=== PATIENT | male | born 1950 | race Caucasian/White ===

== ENCOUNTER 2016-07-16 12:32 | Outpatient (CLI) | payer OTHER | END 2016-07-16 12:33 | disposition home or self-care (01) | LOC: DI 12:32 | PROVIDERS: ATTEND Internal Medicine | DX: I48.91 Unspecified atrial fibrillation (principal); I51.7 Cardiomegaly | CPT/HCPCS: 93306 ==

== ENCOUNTER 2017-05-10 14:53 | Outpatient (CLI) | payer OTHER | END 2017-05-10 14:54 | disposition critical access hospital (66) | LOC: EMS 14:53 | PROVIDERS: ATTEND Surgery | DX: R53.1 Weakness (principal) | CPT/HCPCS: A0425; A0427 ==

== ENCOUNTER 2017-05-10 15:09 | Emergency (ER) | payer OTHER ==
[2017-05-10] MEDS ORDERED: SODIUM CHLORIDE 0.9% 1,000 ML IV ONE (15:33)
--- NOTE | 2017-05-10 15:41 | ED Physician Documentation ---
PD HPI ABD PAIN - Stated complaint Stated Complaint: MALE - Chief complaint Chief Complaint: Abd Pain - History obtained from History obtained from: Patient, Family () - History of Present Illness Timing - onset: Other (66-year-old gentleman who really does not like going to doctor. Never had a colonoscopy. Per the from whom most of the history is taken because he is somewhat encephalopathic, he has had an unintended weight loss of about 120 pounds over the last year and started wearing diapers because of rectal bleeding which became quite heavy over the last couple of days. Per the paramedics the house is covered in blood.) Review of Systems Ten Systems: 10 systems reviewed and negative Constitutional: reports: Fatigue, Weight Loss PD PAST MEDICAL HISTORY - Past Medical History Past Medical History: Yes Cardiovascular: Hypertension - Past Surgical History Past Surgical History: No - Allergies Allergies/Adverse Reactions: Allergies Allergy/AdvReac Type Severity Reaction Status Date / Time No Known Drug Allergies Allergy Verified 04/20/13 12:10 - Social History Does the pt smoke?: No Smoking Status: Never smoker Does the pt drink ETOH?: No Does the pt have substance abuse?: No - Family History Family history: reports: Non contributory PD ED PE NORMAL - Vitals Vital signs reviewed: Yes - General General: Other (Slow to answer questions but alert and oriented. He is very pale with poor perfusion.) - HEENT HEENT: PERRL, EOMI - Neck Neck: Supple, no meningeal sign, No bony TTP - Cardiac Cardiac: Other (Tachycardic and quite irregular without murmur) - Respiratory Respiratory: No respiratory distress, Clear bilaterally - Abdomen Abdomen: Other (Mild diffuse tenderness without surgical signs) - Rectal Rectal: Other (The entirety of the perirectal area is basically a abscess with purulent drainage and a lot of tenderness and profuse blood from the anus.) - Derm Derm: Other (Cool and poor perfused) - Extremities Extremities: Other (Asymmetric pedal edema, right greater than left) - Neuro Neuro: seo strategist 2-12 intact Eye Opening: Spontaneous Motor: Obeys Commands Verbal: Confused GCS Score: 14 Results - Vitals Vitals: Vital Signs - 24 hr 05/10/17 05/10/17 05/10/17 15:10 15:30 16:00 Temperature 36.5 C Heart Rate 157 H 143 H 145 H Respiratory 20 16 23 Rate Blood Pressure 113/92 H 113/92 H 115/79 O2 Saturation 100 99 100 05/10/17 05/10/17 05/10/17 16:15 16:24 17:33 Temperature Heart Rate 133 H 119 H 136 H Respiratory 16 18 10 L Rate Blood Pressure 119/82 H 119/82 H 154/92 H O2 Saturation 100 99 100 05/10/17 05/10/17 05/10/17 18:25 18:40 19:15 Temperature 36.5 C 36.3 C L Heart Rate 111 H 102 H 103 H Respiratory 18 20 20 Rate Blood Pressure 135/84 H 132/88 H 131/90 H O2 Saturation 100 Oxygen O2 Source Nasal cannula - EKG (time done) 1542 Rate: Rate (enter#) (150) Rhythm: Atrial fibrillation [place]: Normal Ischemia: Other (Lateral ST depression) Computer interpretation: Agree with computer - Labs Labs: Laboratory Tests 05/10/17 05/10/17 05/10/17 15:54 15:54 15:54 WBC 27.8 H RBC 4.87 Hgb 9.2 L Hct 31.4 L MCV 64.6 L MCH 18.9 L MCHC 29.2 L RDW 21.3 H Plt Count 312 MPV 8.6 Neut # 26.6 H Lymph # 0.5 L [place] # 0.6 Eos # 0.0 Baso # 0.1 Absolute Nucleated RBC 0.02 Total Counted PATIENT SERVICE TECHNICIAN PST Band Neuts % (Manual) PATIENT SERVICE TECHNICIAN PST Abnorm Lymph % (Manual) PATIENT SERVICE TECHNICIAN PST Nucleated RBC % 0.1 Neutrophils # (Manual) PATIENT SERVICE TECHNICIAN PST Lymphocytes # (Manual) PATIENT SERVICE TECHNICIAN PST Monocytes # (Manual) PATIENT SERVICE TECHNICIAN PST Eosinophils # (Manual) PATIENT SERVICE TECHNICIAN PST Basophils # (Manual) PATIENT SERVICE TECHNICIAN PST Manual Slide Review Indicated Platelet Estimate NORMAL (130-450,000) Platelet Morphology NORMAL APPEARANCE RBC Morph Micro Appear 4+ MICROCYTOSIS PT 17.0 H INR 1.5 H APTT 25.3 Sodium 137 Potassium 2.7 L Chloride 96 L Carbon Dioxide 21 Anion Gap 20.0 H BUN 17 Creatinine 1.1 Estimated GFR (MDRD) 67 L Glucose 156 H Lactic Acid Calcium 8.4 L Magnesium 1.4 L Total Bilirubin 1.7 H AST 29 ALT 13 Alkaline Phosphatase 84 Total Creatine Kinase 66 CK-MB (CK-2) Troponin I Total Protein 5.5 L Albumin 2.5 L Globulin 3.0 Albumin/Globulin Ratio 0.8 L Lipase 24 Ethyl Alcohol < 5.0 Blood Type Blood Type Recheck Antibody Screen Crossmatch IS Only 05/10/17 05/10/17 05/10/17 15:54 15:54 15:54 WBC RBC Hgb Hct MCV MCH MCHC RDW Plt Count MPV Neut # Lymph # [place] # Eos # Baso # Absolute Nucleated RBC Total Counted Band Neuts % (Manual) Abnorm Lymph % (Manual) Nucleated RBC % Neutrophils # (Manual) Lymphocytes # (Manual) Monocytes # (Manual) Eosinophils # (Manual) Basophils # (Manual) Manual Slide Review Platelet Estimate Platelet Morphology RBC Morph Micro Appear PT INR APTT Sodium Potassium Chloride Carbon Dioxide Anion Gap BUN Creatinine Estimated GFR (MDRD) Glucose Lactic Acid 6.1 H* Calcium Magnesium Total Bilirubin AST ALT Alkaline Phosphatase Total Creatine Kinase CK-MB (CK-2) 5.9 Troponin I 0.15 Total Protein Albumin Globulin Albumin/Globulin Ratio Lipase Ethyl Alcohol Blood Type O POSITIVE Blood Type Recheck Antibody Screen NEGATIVE Crossmatch IS Only See Detail 05/10/17 16:50 WBC RBC Hgb Hct MCV MCH MCHC RDW Plt Count MPV Neut # Lymph # [place] # Eos # Baso # Absolute Nucleated RBC Total Counted Band Neuts % (Manual) Abnorm Lymph % (Manual) Nucleated RBC % Neutrophils # (Manual) Lymphocytes # (Manual) Monocytes # (Manual) Eosinophils # (Manual) Basophils # (Manual) Manual Slide Review Platelet Estimate Platelet Morphology RBC Morph Micro Appear PT INR APTT Sodium Potassium Chloride Carbon Dioxide Anion Gap BUN Creatinine Estimated GFR (MDRD) Glucose Lactic Acid Calcium Magnesium Total Bilirubin AST ALT Alkaline Phosphatase Total Creatine Kinase CK-MB (CK-2) Troponin I Total Protein Albumin Globulin Albumin/Globulin Ratio Lipase Ethyl Alcohol Blood Type Blood Type Recheck O POSITIVE Antibody Screen Crossmatch IS Only - Rads (name of study) CT KUB Radiology: EMP read contemporaneously (See complete radiology read, briefly she he has a very large soft tissue mass of the rectum likely malignant with substantial gas in the upper scrotum, base of the penis, and inguinal canals bilaterally, he has inguinal adenopathy and a T8 lesion concerning for metastasis with bilateral pleural effusions and body wall edema as well as renal cysts.) Procedures - General procedure General procedure: He was difficult for IV access, the nurse and distribution systems superintendent had tried and failed prior to my attempt, I tried in the left AC using ultrasound guidance and failed and I placed a 16-gauge IV in the left external jugular which flushed easily but did not draw blood. He needed more IV access and I personally placed a 20-gauge IV in the right external jugular as well after ChloraPrep to draw the blood cultures it flushed easily. PD MEDICAL DECISION MAKING - ED course ED course: 66-year-old gentleman presents with profuse GI bleeding in the setting of recent weight loss that is unintended and what looks like advanced anorectal cancer with abscess formation. Dr. Baires was consulted immediately and he examined the patient at bedside and felt he probably needed to be transferred to a tertiary facility with the ability to do urgent radiation on this. He was administered Zosyn and Flagyl after blood cultures. He was fluid resuscitated and given divided doses of diltiazem for atrial fibrillation with rapid ventricular response. His rapid ventricular response improved. The concern for necrotizing fasciitis was considered with the surgeon, who felt he did not have necrotizing fasciitis , simply an abscess with air in it which was spreading air. That said he still felt he needed to go to a tertiary facility and the [facility] and [facility] are considering. I spoke with Dr. Armando, the surgeon at [facility] who felt that after hearing the story this is probably not consistent with necrotizing fasciitis, he will follow along with defers to the oncology ICU at the [facility] for admission and they will call me back. Accepted by Dr Galdamez, ICU at 1945 - Critical Care Time(min): 45 Time Includes: Direct patient care, Review records, Reassess patient, Document care, Coordinate care, Medical consult, Family consult for tx dec Data interpretation: Labs, Pulse ox Procedures excluded from critical care time: EKG Departure - Departure Disposition: 02 Transfer Acute Care Hosp Clinical Impression: Rectal bleeding, Atrial fibrillation with RVR Condition: Critical
[2017-05-10] MEDS ORDERED: diltiaZEM INJ 5 MG/ML VIAL ONE (16:01)
[2017-05-10 16:05] LABS: BASOPHILS # (AUTO) 0.1 10^3/uL (0.0-0.1); BASOPHILS % (AUTO) 0.2 %; HGB - HEMOGLOBIN 9.2 g/dL (14.0-18.0); LYMPHOCYTES # (AUTO) 0.5 10^3/uL (1.5-3.5); LYMPHOCYTES % (AUTO) 1.7 %; MEAN CORPUSCULAR HEMOGLOBIN 18.9 pg (27.0-31.0); MEAN CORPUSCULAR HGB CONC 29.2 g/dL (32.0-36.0); MEAN CORPUSCULAR VOLUME 64.6 fL (80.0-94.0); MEAN PLATELET VOLUME 8.6 fL (7.4-11.4); MONOCYTES # (AUTO) 0.6 10^3/uL (0.0-1.0); MONOCYTES % (AUTO) 2.1 %; NEUTROPHILS # (AUTO) 26.6 10^3/uL (1.5-6.6); PLT - PLATELET COUNT 312 10^3/uL (130-450); RED BLOOD COUNT 4.87 10^6/uL (4.70-6.10); RED CELL DISTRIBUTION WIDTH 21.3 % (12.0-15.0); WHITE BLOOD COUNT 27.8 x10^3/uL (4.8-10.8)
[2017-05-10 16:07] LABS: INR 1.5 (0.8-1.2)
[2017-05-10] MEDS ORDERED: diltiaZEM INJ 5 MG/ML VIAL IVP STA ×3 (16:07→17:34)
[2017-05-10] MEDS ORDERED: metroNIDAZOLE 500 MG/100 ML 500 MG/100 ML BAG IV ONE (16:08)
[2017-05-10] MEDS ORDERED: PIPERACILLIN/TAZOBACTAM 4.5 GM in SODIUM CHLORIDE 0.9% MINIBAG 100 ML IV STA (16:08)
[2017-05-10 16:14] LABS: ALBUMIN 2.5 g/dL (3.2-5.5); ALBUMIN/GLOBULIN RATIO 0.8 (1.0-2.2); ALKALINE PHOSPHATASE 84 IU/L (42-121); ALT ALANINE AMINOTRANSFERASE 13 IU/L (10-60); AST ASPARTATE AMINOTRANSFERASE 29 IU/L (10-42); BILIRUBIN,TOTAL 1.7 mg/dL (0.2-1.0); BUN - BLOOD UREA NITROGEN 17 mg/dL (6-20); CALCIUM 8.4 mg/dL (8.5-10.3); CARBON DIOXIDE - CO2 21 mmol/L (21-32); CHLORIDE 96 mmol/L (101-111); CK- CREATINE KINASE 66 IU/L (22-269); CREATININE 1.1 mg/dL (0.6-1.2); GFR - MDRD 67 (>89); GLUCOSE 156 mg/dL (70-100); LIPASE 24 U/L (22-51); MAGNESIUM 1.4 mg/dL (1.7-2.8); SODIUM 137 mmol/L (135-145); TOTAL PROTEIN 5.5 g/dL (6.7-8.2)
--- NOTE | 2017-05-10 16:15 | CONSULTATION NOTE ---
Referring Provider Name of Referring Provider:: Faustino Garcia/John Robles Consult Date: 05/10/17 Chief Complaint - Chief Complaint Chief Complaint: Profound hematochezia with hypotension and tachycardia History of Present Illness - Admitted From Admitted From:: Not. - History Obtained From Records Reviewed: Yes. History obtained from: /paramedics/Dr. Garcia Exam Limitations: Patient is tachycardic and hypotensive with questionable ability to answer. - History of Present Illness HPI Comment/Other: The patient is a 66-year-old male evaluated urgently in room 1 at [facility]'s emergency department at the request of Dr. Faustino Garza. The patient states that he has had a long history of hemorrhoids but when asked him who diagnosed the hemorrhoids the patient stated that he did. He has never had a colon evaluation. Specifically, he has never had a colonoscopy or barium enema and from the records that I have he has not even had a digital rectal examination. The patient states that he does not like going to physicians and review of his chart here at the hospital confirms this to be the case. In the past 4 years he was seen once in the emergency department and we have 2 echocardiograms as well as a fluoroscopic study looking at his diaphragm. No additional information is available. The patient states that he has had blood per rectum for years but that in the past several days the bleeding has gotten significantly worse. The paramedics stated that there was blood "all over the house." The patient describes exquisite tenderness of his "rear-end." He is not on any blood thinners. He does not drink alcohol. History - Past Medical History Cardiovascular: reports: Hypertension GI: reports: Hemorrhoids Meds/Allgy - Allergies Allergies/Adverse Reactions: Allergies Allergy/AdvReac Type Severity Reaction Status Date / Time No Known Drug Allergies Allergy Verified 04/20/13 12:10 Review of Systems - Other Findings Other Findings: I did not ask an extensive review of systems as it is not pertinent at this point in time. Exam - Vital Signs Reviewed Vital Signs: Yes Vital Signs: Vital Signs x48h Temp Pulse Resp BP Pulse Ox 05/10/17 15:10 36.5 C 157 H 20 113/92 H 100 - Physical Exam General Appearance: positive: Moderate distress Eyes Bilateral: positive: No lid inflammation, Conjunctivae nml, No scleral icterus Neck: positive: Trachea midline Respiratory: positive: Breath sounds nml, Other (Tachypneic.) Cardiovascular: positive: Tachycardia Abdomen: positive: Non-tender, Nml bowel sounds Rectal: positive: Other (A rectal examination was not performed as it could not be performed. The patient has a large near circumferential mass that is rock hard at the anus. There is some dark discoloration in the lateral cheek. There is blood mixed with stool leaking out of the anus.) Skin: positive: Pallor Extremities: positive: Pedal edema Neurologic/Psychiatric: positive: Other (Orientation improving he knows that he is in the hospital and was able to answer some of my questions. Apparently he got the year correct when he is speaking with Dr. Garza.) Conclusion/Plan - Diagnosis Diagnosis: Anorectal carcinoma (advanced) as the cause of his hemorrhage. - Plan Plan: I do not have pathologic confirmation that this is an anal rectal carcinoma but the clinical presentation is certainly that of a cancer. Whether not this is anal or rectal remains to be seen during pathologic evaluation and a biopsy should be performed. Currently, he needs to be stabilized with blood products to maintain his heart rate at or just slightly below 100. Following this I strongly recommend that he be transferred to a clinical setting where radiation therapy can be applied to this mass to shrink it and decrease the bleeding. It is likely that he will require a diverting colostomy but a diverting colostomy alone will not stop his bleeding nor his ano-rectal pain. At the time that he has his diverting colostomy they can perform the biopsies. The treatment for this disease process is radiation therapy. It is likely only going to be palliative but this is a treatment modality that we do not have at our hospital. Consideration can be given to interventional radiology to thrombose the responsible blood vessel(s) but this will do nothing to decrrease the size of the mass and consequently decrease his pain. Review of his labs also indicates that he has an elevated white blood cell count and a coagulopathy which greatly raises the likelihood that the malignangcy has perforated the distal rectum and in addition is likely metastatic to the liver. Lastly, we have limited blood bank resources at our hospital. We have limited availability to pack red blood cells and fresh frozen plasma. It is generally much faster for us to transfer patient to platelets then to have platelets brought to this hospital. For all the reasons documented above and to summarize I strongly recommend an urgent referral to a tertiary care center that has the ability to: -radiate his anorectum or interventional radiology to thrombose the responsible blood vessel for the bleeding (we cannot do this) -obtain anorectal biopsies to confirm the diagnosis -perform a diverting colostomy -have more ready access to blood products as needed - Lab Results Fish Bones: 05/10/17 15:54 05/10/17 15:54
[2017-05-10 16:18] LABS: TROPONIN I 0.15 ng/mL (<0.49)
[2017-05-10 16:20] LABS: CREATINE KINASE MB 5.9 ng/mL (0.6-6.3)
[2017-05-10] MEDS ORDERED: LACTATED RINGERS 1,000 ML IV STA ×2 (16:22→17:04)
[2017-05-10] MEDS ORDERED: POTASSIUM CHLOR 10 MEQ/100 ML 10 MEQ/100 ML BAG IV ONE (16:22)
[2017-05-10] MEDS ORDERED: MAGNESIUM SULFATE 2 GRAM 2 GM/50 ML BAG IV ONE (16:22)
[2017-05-10 16:25] LABS: PLATELET ESTIMATE, MANUAL NORMAL (130-450,000) (NORMAL); PLATELET MORPHOLOGY NORMAL APPEARANCE (NORMAL)
[2017-05-10] MEDS ORDERED: CLINDAMYCIN 900 MG/50 ML 50 ML IV ONE (17:05)
--- NOTE | 2017-05-10 17:21 | MISCELLANEOUS PROVIDER NOTE ---
Miscellaneous Provider Note - - Note: The CT scan of the abdomen and pelvis is now completed which provides additional information. There is air in the scrotum and around the penis but not in the abdomen (no free air). This pattern of air does not appear to be necrotizing fasciitis but rather appears to be a perforated markedly advanced rectal cancer. This is the source of his elevated white blood cell count and makes the need for a diverting colostomy unquestionable. As I do not believe that the patient has necrotizing fasciitis at this time he does not need an emergent operation. I still believe it would be in the patient's best interest to be transferred to a hospital where all of my previous recommendations can be done on an expedited manner. Please note that the radiologist's reading on the CT scan is not back yet but I cannot see how this would make any clinical difference.
--- NOTE | 2017-05-10 17:39 | CT Report ---
EXAM: CT ABDOMEN AND PELVIS EXAM DATE: 05/10/2017 04:41 PM. CLINICAL HISTORY: Rectal bleed, rectal mass. COMPARISONS: None. TECHNIQUE: Routine helical CT imaging was performed through the abdomen and pelvis. IV contrast: None . Enteric contrast: No. Reconstructions: Coronal and sagittal. In accordance with CT protocol optimization, one or more of the following dose reduction techniques w ere utilized for this exam: automated exposure control, adjustment of mA and/or KV based on patient s ize, or use of iterative reconstructive technique. FINDINGS: Lung Bases: Partial demonstration of a small right and moderate left pleural effusion. Adjacent minim al left lower lobe probable atelectasis. Coronary artery calcifications demonstrated. Liver/spleen/pancreas/adrenal glands: Numerous splenic and minimal hepatic calcified nodules are comp atible with old granulomatous disease. No other gross abnormalities, bilateral mid noncontrast imagin g. Kidneys: No stones, hydronephrosis or hydroureter. Small lateral right mid kidney hypodensity is comp atible with a cyst but not adequately characterize. 1.3 cm hyperdense exophytic left upper pole nodul e suggests a complex cyst but it is not specific. Ultrasound could be performed for further evaluatio n. Peritoneal Cavity/Bowel: No definite intra-abdominal or intrapelvic lymphadenopathy. No aditi free fl uid. There is bilateral inguinal lymphadenopathy with maximum short axis diameter from 1.8 cm on the left and 1.7 cm on the right. The appendix is well visualized and normal. There are some distended sm all bowel loops and there is a large amount of stool within the colon but there is no aditi obstructi on. Large, lobulated mass centered in the region of the rectum extending through the level of the annulus and also extending into the medial gluteal region. Within its mid and upper portion there central ga s which likely represents the rectal lumen. This most consistent with a large rectal malignancy with maximum AP, transverse and craniocaudal dimensions of approximately 11.4 x 8.6 x 15.0 cm. There is as sociated bony destruction of much of the sacrum at the S4 level and below. Within the pelvis centered anterior to the L5 and S1 level is a lobulated mass with some mild internal linear enhancement or mi ld calcification which abuts and may be contiguous with the larger rectal region mass. It measures 7. 1 x 7.7 x 7.0 cm. There is a moderate amount of focal and tracking gas within the subcutaneous tissues in the region of the proximal penis and base of the penis, right substantially greater than left,, including substant ially on the inferior most image indicating that it is not fully included. This tracks superiorly int o the inguinal canal on the right and mildly on the left. It also extends posteriorly on the right in the perineal region and deep to the right gluteal crease, near the lower margin of the rectal relate d mass, including on the lowest image, presumably not including its full extent. In the absence of re cent surgical procedure, this is compatible with superimposed infection and could represent necrotizi ng fasciitis. There are at least a couple of foci of extraluminal gas within the posterior right pelv is in the anterior margin of the lower right sacrum. No other free air demonstrated within the abdome n or pelvis. Pelvic Organs: Limited bladder distention with a pattern suspicious for diffuse wall thickening, like ly accentuated by limited distention. The prostate cannot be differentiated from the large lower pelv ic mass. Vasculature: Moderate calcifications, without aneurysm. Bones: Lower sacral and coccygeal bony destruction from the pelvic mass. Focal lucency within T8 vert ebral body may be an incidental finding but a lytic, metastatic lesion is not excluded. Other: Evidence of diffuse body wall edema. IMPRESSION: 1. Very large soft tissue mass within the lower pelvis measuring up to 15 cm extending throughout the rectal region, and beyond, as discussed above, likely representing rectal malignancy. There is assoc iated bony destruction of the lower sacrum. There is an additional lobulated mass within the posterio r mid to upper pelvis measuring up to 7.7 cm which may be contiguous with the other mass. 2. Substantial gas within the subcutaneous tissues at level of the upper scrotum, base of penis and t racking into the inguinal canal regions bilaterally, right greater than left, and posteriorly into th e right perineal region compatible with infection and suspicious for necrotizing fasciitis. The full inferior extent of the soft tissue gas is not included on this exam. There are a couple of foci of ga s in the far posterior lower pelvis. Otherwise, no aditi pneumoperitoneum. 3. Bilateral inguinal lymphadenopathy. 4. Focal lucency in the T8 vertebral body is nonspecific but metastatic lytic disease is a considerat ion. 5. Moderate left and small right pleural effusions. 6. Evidence of diffuse body wall edema. 7. Probable right renal cyst and complex left renal cyst. RADIA The above critical findings were discussed with Dr. Faustino Garcia by Dr. Max Pineda at 17:29 hrs on 05/10/17. Referring Provider Line: [phone] SITE ID: [id number]
[2017-05-10] MEDS ORDERED: fentaNYL 100 MCG/2 ML VIAL IVP STA ×2 (17:50→22:23)
[2017-05-10] MEDS ORDERED: ELECTROLYTE-A SOLUTION 1,000 ML IV ONE (18:29)
[2017-05-10 20:20] LABS: GLUCOSE, URINE (UA) NEGATIVE (NEGATIVE); KETONES,URINE (UA) TRACE mg/dL (NEGATIVE); LEUKOCYTE ESTERASE, URINE SMALL (NEGATIVE); NITRITE,URINE NEGATIVE (NEGATIVE); OCCULT BLOOD,URINE SMALL (NEGATIVE); PROTEIN,URINE 100 mg/dL (NEGATIVE); UROBILINOGEN,URINE 1 (NORMAL) E.U./dL (NORMAL)
[2017-05-10 20:21] LABS: CLARITY,URINE CLOUDY (CLEAR)
[2017-05-10] MEDS ORDERED: A & D OINTMENT 5 GM PACKET TOP STA (20:23)
[2017-05-10 20:29] LABS: BILIRUBIN,URINE NEGATIVE (NEGATIVE); ICTOTEST,URINE NEGATIVE
[2017-05-10 20:30] LABS: AMORPHOUS SEDIMENT,UR Marked /LPF; BACTERIA,URINE Few /HPF (None Seen); MUCUS,URINE Moderate Strands; SQUAMOUS EPITHELIAL CELL,UR NONE SEEN (<= Few)
[2017-05-10 20:31] LABS: CRYSTALS,URINE 0-2 Ammonium Urate /LPF
[2017-05-10 21:04] LABS: HGB - HEMOGLOBIN 8.8 g/dL (14.0-18.0)
[2017-05-10 22:37] VITALS: BP 133/83
== END 2017-05-10 22:48 | disposition short-term general hospital (02) ==
LOC: EDBD → ED 15:09
DX: C21.8 Malignant neoplasm of overlapping sites of rectum, anus and anal canal (principal); K62.5 Hemorrhage of anus and rectum; I48.91 Unspecified atrial fibrillation; I10 Essential (primary) hypertension; R06.82 Tachypnea, not elsewhere classified
CPT/HCPCS: 36415; 36430; 36556; 51702; 74176; 80053; 80320; 81001; 82550; 82553; 83605; 83690; 83735; 84484; 85014; 85018; 85025; 85610; 85730; 86850; 86900; 86901; 86920; 87040; 87086; 93005; 96361; 96365; 96367; 96368; 96375; 96376; 99291; A9270; J7120; P9016; 81003; 99285

== ENCOUNTER 2017-05-10 22:50 | Outpatient (CLI) | payer OTHER | END 2017-05-10 22:51 | disposition short-term general hospital (02) | LOC: EMS 22:50 | PROVIDERS: ATTEND Surgery | DX: K62.5 Hemorrhage of anus and rectum (principal) | CPT/HCPCS: A0170; A0425; A0426 ==